=== PATIENT | male | born 1990 | race Caucasian/White ===

== ENCOUNTER 2021-09-12 07:48 | Outpatient (CLI) | payer BC, SELFPAY | END 2021-09-12 07:49 | disposition home or self-care (01) | LOC: ANHAUDIO 07:50 | PROVIDERS: PCP Internal Medicine; Visit Provider Otolaryngology | DX: H81.10 Benign paroxysmal vertigo, unspecified ear (principal) | CPT/HCPCS: 92537; 92540; 92546; 92567 ==